=== PATIENT | male | born 2005 | race Caucasian/White ===

== ENCOUNTER 2023-02-05 17:48 | Emergency (ER) | payer MEDICAID ==
[~2023-02-05] VITALS: Ht 162.6 cm; Wt 72.6 kg
--- NOTE | 2023-02-05 17:53 | NUR ---
PT BIBA TO BED 1. RT AT BEDSIDE
[2023-02-05 18:13] VITALS: BP 127/105
--- NOTE | 2023-02-05 18:23 | NUR ---
17YO MALE PT [facility] D/T ABNORMAL LABS. PER EMS, FACILITY REPORT : K 6.3 .PT NON VERBAL AT BASELINE, AROUSABLE TO PAIN OR TOUCH. TRACH TO VENT. GTUBE AND BARRON IN PLACE. 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 NO VISIBLE DISTRESS. HX: HYDROCEPHALUS, CEREBRAL PALSY, QUADRIPELIGIC, CHRONIC RESPIRATORY FAILURE ALLERGIES: HYDROCODONE
[2023-02-05 18:42] LABS: BASOPHILS % (AUTO) 0.6 % (0.0-2.0); EOSINOPHILS # (AUTO) 0.3 K/uL (0-0.4); HEMATOCRIT 37.6 % (36-52); HEMOGLOBIN 12.7 g/dL (12.0-18.0); LYMPHOCYTES # (AUTO) 1.2 K/uL (2.0-11.5); LYMPHOCYTES % (AUTO) 21.4 % (20.5-51.1); MEAN CORPUSCULAR HEMOGLOBIN 31 pg (27-31); MEAN CORPUSCULAR HGB CONC 34 g/dL (33-37); MONOCYTES # (AUTO) 0.4 K/uL (0.8-1.0); MONOCYTES % (AUTO) 7.4 % (1.7-9.3); NEUTROPHILS # (AUTO) 3.7 K/uL (1.8-7.7); NEUTROPHILS % (AUTO) 65.6 % (42.2-75.2); PLATELET COUNT (AUTO) 242 K/uL (140-450); RED BLOOD CELL COUNT(AUTO) 4.05 MIL/uL (4.20-6.10); RED CELL DISTRIBUTION WIDTH 15.1 % (11.6-13.7); WHITE BLOOD COUNT (AUTO) 5.7 K/uL (4.5-11.0)
--- NOTE | 2023-02-05 18:48 | NUR ---
The patient's care was reviewed and supervised by Nash 04 ED, RN.
--- NOTE | 2023-02-05 18:50 | NUR ---
The patient's care was reviewed and supervised by [place] 04 ED, RN.
[2023-02-05 19:00] VITALS: BP 111/80
[2023-02-05 19:01] LABS: ALBUMIN 3.7 g/dL (3.4-5.0); ANION GAP 13.2 (8-16); CARBON DIOXIDE 27.7 mmol/L (21-32); CREATININE 0.5 mg/dL (0.6-1.3); MAGNESIUM 2.2 mg/dL (1.8-2.4); PHOSPHORUS 4.3 mg/dL (2.5-4.9); POTASSIUM 3.9 mmol/L (3.5-5.1); TOTAL BILIRUBIN 0.4 mg/dL (0.0-1.0)
--- NOTE | 2023-02-05 19:16 | NUR ---
1900 SPUTUM COLLECTED AND SENT TO LAB.
--- NOTE | 2023-02-05 19:31 | NUR ---
REPORT GIVEN TO ZULEMA FORTE. TRANSFER OF CARE AT THIS TIME
--- NOTE | 2023-02-05 20:26 | NUR ---
report given to debbie wheeler 2-3 hours from [facility]
[2023-02-05 21:52] VITALS: BP 103/52
--- NOTE | 2023-02-05 21:55 | NUR ---
[facility] TRANSPORT AT BEDSIDE
--- NOTE | 2023-02-05 22:11 | NUR ---
Patient discharged with v/s stable. Written and verbal after care instructions given and explained. Patient verbalized understanding. Ambulance Transport with to [facility]. All questions addressed prior to discharge. Advised to follow up with PMD.
--- NOTE | 2023-02-05 22:11 | NUR ---
PT TAKEN BY [facility] TRANSPORT
== END 2023-02-05 22:11 ==
LOC: MED 17:48
DX: R79.9 Abnormal finding of blood chemistry, unspecified (principal); Z88.5 Allergy status to narcotic agent; Z91.012 Allergy to eggs; Z79.899 Other long term (current) drug therapy; Z98.890 Other specified postprocedural states
CPT/HCPCS: 36415; 80053; 83735; 84100; 85025; 89220; 93005; 99285